=== PATIENT | female | born 1945 | race Caucasian/White ===

== ENCOUNTER 2017-11-06 05:55 | Day surgery (SDC) | payer OTHER ==
[~2017-11-06 05:55] MED LIST: ENALAPRIL MALEAT5 MG; HYDROCHLOROTHIA25 MG
== END 2017-11-06 10:09 | disposition home or self-care (01) ==
LOC: AMB-ENDOS 05:55 → CIR.AMB 08:45 → AMB-ENDOS 08:45
DX: C20 Malignant neoplasm of rectum (principal); I10 Essential (primary) hypertension; D64.89 Other specified anemias; N28.1 Cyst of kidney, acquired